=== PATIENT | male | born 1970 | race Caucasian/White ===

== ENCOUNTER 2017-11-01 10:38 | Emergency (ER) | payer OTHER ==
[2017-11-01 10:48] VITALS: BP 114/74
--- NOTE | 2017-11-01 11:58 | ER Document Report ---
ED Skin Rash/Insect Bite/Abscs - General Chief Complaint: Skin Problem Stated Complaint: FACIAL PAIN Time Seen by Provider: 11/01/17 11:46 Mode of Arrival: Ambulatory Information source: Patient Notes: 47-year-old male presents to ED for increase pain and swelling and redness to the right cheek. He states he developed a abscess to the right cheek a week ago went and saw the mri assistant on Saturday and was started on doxycycline twice daily. He states he take the medications as prescribed using warm soaks twice a day and the pain is getting worse and the area is getting larger. He states that the mri assistant did not drain it as he usually has done when he has these. He states now the pain is radiating to his head and down his jaw. He is alert and oriented, respirations regular and unlabored, speaking in full complete sentences, patient ambulates with a even steady gait and is in no acute distress at this time. TRAVEL OUTSIDE OF THE [place] IN LAST 30 DAYS: No - HPI Patient complains to provider of: Tender/swollen area Onset: Last week Onset/Duration: Gradual, Worse Quality of pain: Sharp, Throbbing Pain Level: 4 Skin Character: Abscess Quality of rash: Painful Identify cause: No Exacerbated by: Denies Relieved by: Denies Similar symptoms previously: Yes Recently seen / treated by doctor: Yes - Related Data Allergies/Adverse Reactions: hydrocodone [Hydrocodone] Allergy (Severe, Verified 11/01/17 10:45) itching Penicillins Allergy (Severe, Verified 11/01/17 10:45) Anaphylaxis Past Medical History - General Information source: Patient - Social History Smoking Status: Never Smoker Cigarette use (# per day): No Chew tobacco use (# tins/day): No Smoking Education Provided: No Frequency of alcohol use: None Drug Abuse: None Lives with: Family Family History: Arthritis, CAD, DM, Hyperlipidemia, Hypertension, Malignancy. denies: COPD, CVA, Thyroid Disfunction Patient has suicidal ideation: No Patient has homicidal ideation: No - Past Medical History Cardiac Medical History: Reports: Hx Hypercholesterolemia, Hx Hypertension Pulmonary Medical History: Reports: Hx Bronchitis - hx of, Hx Pneumonia - hx of EENT Medical History: Reports: None Neurological Medical History: Reports: Hx Migraine Endocrine Medical History: Reports: None Renal/ Medical History: Reports: None Malignancy Medical History: Reports None GI Medical History: Reports: Hx Gastroesophageal Reflux Disease Musculoskeltal Medical History: Reports None Skin Medical History: Reports Hx Cellulitis Psychiatric Medical History: Reports: Hx Depression Traumatic Medical History: Reports: None Infectious Medical History: Reports: None Past Surgical History: Reports: Hx Appendectomy, Hx Inguinal Hernia, Hx Orthopedic Surgery - Left shoulder 2, right shoulder 1, spiral tib-fib fracture, Hx Tonsillectomy, Hx Umbilical Hernia - Immunizations Hx Diphtheria, Pertussis, Tetanus Vaccination: Yes - 2012 Hx Pneumococcal Vaccination: 04/01/13 Review of Systems - Review of Systems Constitutional: No symptoms reported EENT: No symptoms reported Cardiovascular: No symptoms reported Respiratory: No symptoms reported Gastrointestinal: No symptoms reported Genitourinary: No symptoms reported Male Genitourinary: No symptoms reported Musculoskeletal: No symptoms reported Skin: Other - Abscess to the right cheek with swelling and redness Hematologic/Lymphatic: No symptoms reported Neurological/Psychological: No symptoms reported -: Yes All other systems reviewed and negative Physical Exam - Vital signs Vitals: Temp Pulse Resp BP Pulse Ox 98.8 F 82 16 114/74 96 11/01/17 10:47 11/01/17 10:47 11/01/17 10:47 11/01/17 10:47 11/01/17 10:47 Interpretation: Normal - General General appearance: Appears well, Alert - HEENT Head: Abrasions, Tenderness, Other - Erythema to the right cheek Eyes: Normal Pupils: PERRL Ears: Normal External canal: Normal Tympanic membrane: Normal Sinus: Normal Nasal: Normal Mouth/Lips: Normal Mucous membranes: Normal Pharynx: Normal Neck: Anterior cervical chain - Respiratory Respiratory status: No respiratory distress Chest status: Nontender Breath sounds: Normal Chest palpation: Normal - Cardiovascular Rhythm: Regular Heart sounds: Normal auscultation Murmur: No - Abdominal Inspection: Normal Distension: No distension Bowel sounds: Normal Tenderness: Nontender Organomegaly: No organomegaly - Back Back: Normal, Nontender - Extremities General upper extremity: Normal inspection, Nontender, Normal color, Normal ROM , Normal temperature General lower extremity: Normal inspection, Nontender, Normal color, Normal ROM , Normal temperature, Normal weight bearing. No: Frankie's sign - Neurological Neuro grossly intact: Yes Cognition: Normal Orientation: AAOx4 Maria De Jesus Coma Scale Eye Opening: Spontaneous Maria De Jesus Coma Scale Verbal: Oriented Maria De Jesus Coma Scale Motor: Obeys Commands Maria De Jesus Coma Scale Total: 15 Speech: Normal Motor strength normal: LUE, RUE, LLE, RLE Sensory: Normal - Psychological Associated symptoms: Normal affect, Normal mood - Skin Skin Temperature: Warm Skin Moisture: Dry Skin Color: Normal Skin irregularity: Abscess, Erythema Location of irregularity: Face Course - Re-evaluation Re-evalutation: 11/01/17 13:[address] Sheets for the red swollen firm area to the right cheek that is increased in pain and swelling since he saw the mri assistant on Saturday. He recommended opening the area with a 18-gauge needle to see if any drainage returned and to change the patient to clindamycin from doxycycline. He states the patient should take the doxycycline today as well as the clindamycin today and then stopped the doxycycline tomorrow. L.E.T applied to the right chin waited 15 minutes then skin cleaned with ChloraPrep an 18-gauge needle was used to open the area. No purulent drainage returned just blood. Wound culture was sent of the drainage and patient was started on clindamycin. Patient instructed on clindamycin and to continue taking doxycycline the day. Patient to follow-up with the mri assistant or primary doctor in the next 3-5 days and return to the ED if swelling and redness does not decrease. Patient also given instructions on Epson salt soaks. - Vital Signs Vital signs: Temp Pulse Resp BP Pulse Ox 98.8 F 82 16 114/74 96 11/01/17 10:47 11/01/17 10:47 11/01/17 10:47 11/01/17 10:47 11/01/17 10:47 Discharge - Discharge Clinical Impression: Cellulitis of right external cheek Condition: Stable Disposition: HOME, SELF-CARE Instructions: Family Physicians / Practices Additional Instructions: CELLULITIS: You have an infection of your skin and underlying soft tissues called cellulitis. This is due to bacteria, which can enter through any break in the skin, or even through an irritated hair follicle. Untreated, cellulitis will usually worsen. Antibiotics are required. Usually, warm packs or warm soaks, and elevation of the infected area are recommended. You should start getting better within 24 to 36 hours. Most infections respond quickly to the right medication. Follow-up care is important, however, to check for abscess (boil) formation, unsuspected foreign body, or resistant infection. If you develop fever, chills, or if the area of infection is becoming rapidly more swollen or painful, call the doctor at once. CLINDAMYCIN: You have been given a prescription for the antibiotic clindamycin. It is often prescribed for infections in the mouth, such as dental infections or abscesses, and for skin infections due to MRSA. It's important that you take all the medication, unless instructed otherwise by your physician. Failure to complete the entire course can result in relapse of your condition. Common side effects of antibiotics include nausea, intestinal cramping, or diarrhea. Women may develop vaginal yeast infections, and babies can get yeast (thrush) in the mouth following the use of antibiotics. Contact your physician if you develop significant side effects from this medication. Allergy to this antibiotic can result in hives, wheezing, faintness, or itching. If symptoms of allergy occur, stop the medication and call the doctor. Epsom Salt Soaks Soak the wound area in a container of warm epsom salt water. If you can't get the wound area into a bucket or miller, use a folded towel soaked in the epsom salt solution and apply to the area. If you would get a woman's makeup remover pad would be the perfect size to soak this area. Put 4 of these in the bucket of water with Epson salt apply the first 1 when he cools off the roadway put the second and the third and the fourth by the time you put the fourth on your 20 minutes should be finished. Do this 4 times a day Use clean hot tap water (about the temperature of a very warm bath), mixing in about one (1) teaspoon for every pint of water. Two gallon --> 16 teaspoons Epsom Salts One gallon --> 8 teaspoons Epsom Salts Two quarts --> 4 teaspoons Epsom Salts One quart --> 2 teaspoons Epsom Salts Soak the wound for about 20 minutes while gently moving it around in the water. Repeat this four (4) times a day. FOLLOW-UP CARE: If you have been referred to a physician for follow-up care, call the physician s office for an appointment as you were instructed or within the next two days. If you experience worsening or a significant change in your symptoms, notify the physician immediately or return to the Emergency Department at any time for re-evaluation. Prescriptions: Clindamycin HCl 300 mg PO QID #40 capsule Referrals: CALI PARKER NP [Primary Care Provider] - Follow up as needed
[2017-11-01] MEDS ORDERED: LIDOCAINE 4%/TETRACAINE 0.5%/EPI 0.18% 5 ML TOPICAL SOLN TOP ONE (12:05)
[2017-11-01] MEDS ORDERED: CLINDAMYCIN HCL 150 MG CAPSULE PO ONE (12:36)
== END 2017-11-01 12:48 | disposition home or self-care (01) ==
LOC: ER 10:38
PROC: 0H91XZZ Drainage of Face Skin, External Approach (ICD-10-PCS; principal; 2017-11-01)
DX: L03.211 Cellulitis of face (principal); Z87.2 Personal history of diseases of the skin and subcutaneous tissue
CPT/HCPCS: 99283; 87070; 87205; 87075; 87077; 10060; J3490